=== PATIENT | female | born 1960 | race Caucasian/White ===

== ENCOUNTER 2016-10-14 20:19 | Emergency (ER) | payer OTHER ==
[~2016-10-14] VITALS: Ht 172.7 cm; Wt 84.5 kg
[~2016-10-14 20:19] MED LIST: ACET500C5 PO; CIPR500T4 PO; DOCU-144 PO; LORA1TAB PO; UDROBDM PO
[2016-10-14 20:22] VITALS: Ht 172.7 cm; Wt 84.5 kg
[2016-10-14] MEDS ORDERED: ALBUTEROL 0.083% (NEB) 2.5 MG/3 ML AMP NEB STA (20:31)
[2016-10-14] MEDS ORDERED: DEXAMETHASONE 10 MG/ML 1 ML INJ IM STA (20:31)
[2016-10-14] MEDS ORDERED: AZITHROMYCIN 250 MG TAB PO STA (20:32)
--- NOTE | 2016-10-14 20:41 | ERD ---
ER Documentation Chief Complaint Date/Time DATE: 10/14/16 TIME: 20:38 Chief Complaint cough, sore throat, chest congestion HPI This is a 56-year-old female presenting to the emergency room complaining of cough, sore throat, congestion for the past couple days. Patient states that she feels like she has fevers, she took Tylenol 2 hours prior to being seen. Patient denies any shortness of breath. She does admit to having chest pain with deep inspiration. Patient denies any nausea, vomiting, diarrhea. She denies any medical problems ROS All systems reviewed and are negative except as per history of present illness. Medications Home Meds Active Scripts Promethazine HCl/Codeine (Prometh-Codein 6.25-10 mg/5 ml) 5 Ml Syrup, 5 ML PO Q6 Y for COUGH, #60 Prov:CHRISTAL RAY PA-C 10/14/16 Azithromycin* (Azithromycin*) 250 Mg Tablet, 250 MG PO DAILY, #4 TAB Prov:CHRISTAL RAY PA-C 10/14/16 Albuterol Sulfate* (Proair HFA*) 8.5 Gm Hfa.aer.ad, 2 PUFF INH Q4H Y for WHEEZING AND SOB, #1 INHALER Prov:CHRISTAL RAY PA-C 10/14/16 Lorazepam* (Lorazepam*) 1 Mg Tablet, 1 MG PO Q8H Y for ANXIETY, #10 TAB Prov:PADMINI ROBLES PA-C 10/21/15 Docusate Sodium* (Colace*) 100 Mg Capsule, 100 MG PO TID, #30 CAP 0 Refills Prov:SOO MARTINEZ PA-C 10/17/15 Guaifenesin-Dextromethorphan* (Robitussin* DM) 100MG/10MG/5ML Syrup, 5 ML PO Q6H Y for COUGH, #120 ML 0 Refills Prov:SOO MARTINEZ PA-C 10/17/15 Acetaminophen* (Tylophen*) 500 Mg Capsule, 1 CAP PO Q6H Y for PAIN AND OR ELEVATED TEMP, #30 CAP 0 Refills Prov:SOO MARTINEZ PA-C 10/17/15 Ciprofloxacin Hcl* (Ciprofloxacin Hcl*) 500 Mg Tablet, 500 MG PO BID for 7 Days , TAB 0 Refills Prov:SOO MARTINEZ PA-C 10/17/15 Allergies Allergies: Coded Allergies: aspirin (Verified Allergy, Unknown, 10/17/15) PMhx/Soc History of Surgery: No Anesthesia Reaction: No Hx Neurological Disorder: No Hx Respiratory Disorders: No Hx Cardiac Disorders: No Hx Psychiatric Problems: No (Anxiety) Hx Miscellaneous Medical Probl: Yes (Gastritits, Hemrrhoids) Hx Alcohol Use: No Hx Substance Use: No Hx Tobacco Use: No Physical Exam Vitals Vital Signs Date Time Temp Pulse Resp B/P Pulse Ox O2 Delivery O2 Flow Rate FiO2 10/14/16 20:49 89 22 98 21 10/14/16 20:22 97.7 81 20 133/80 99 Physical Exam GENERAL: well-developed/well-nourished, in no apparent distress, non-toxic appearing HEAD: NC/AT, no swelling noted in frontal or maxillary areas EARS: bilateral tympanic membrane is intact without erythema or effusion NARES: congested THROAT: oropharynx non-erythematous without exudates, no tonsil enlargement EYES: Conjunctiva normal NECK: Supple, no lymphadenopathy PULM: Coarse breath sounds heard bilaterally CV: Normal S1S2, RRR, good capillary refill GI: Soft, non-distended, normal bowel sounds, non-tender BACK: No midline tenderness, no masses EXT No clubbing, cyanosis, or edema NEURO: Alert and Orientated SKIN: Intact, normal turgor PSYCH: Normal mood and mentation Results 24 hrs Current Medications Medications (Trade) Dose Ordered Sig/Bridgette Route PRN Reason Start Time Stop Time Status Last Admin Dose Admin Albuterol (Proventil 0.083% (Neb)) 5 mg ONCE STAT NEB 10/14/16 20:31 10/14/16 20:33 DC 10/14/16 20:49 Dexamethasone (Decadron) 10 mg ONCE STAT IM 10/14/16 20:31 10/14/16 20:33 DC 10/14/16 20:43 Azithromycin (Zithromax) 500 mg ONCE STAT PO 10/14/16 20:32 10/14/16 20:33 DC 10/14/16 20:42 Procedures/MDM This is a 56-year-old female presenting to the emergency department complaining of cough, sore throat, congestion for the past couple days. This is likely bronchitis due to physical examination. RT was consulted and patient was given a breathing treatment 5mg albuterol, 10 mg of Decadron and I have reassessed her and she is doing a lot better. I have a low suspicion for pneumonia, respiratory distress, ACS. Patient is suitable for outpatient medications, pro- air, Z-Ugo and promethazine-DM. Patient's first dose of Z-Ugo was given in the ED. strict precautions were given to return to the ER for any worsening signs or symptoms. She understands and agrees with this plan Chest x-ray showed no evidence of infiltrates, pneumothorax or pleural effusion Stable for discharge for home Departure Diagnosis: Primary Impression: Bronchitis Condition: Stable CHRISTAL RAY PA-C October 14, 2016 20:41
[2016-10-14] MEDS ORDERED: AZIT250T6 PO (22:15)
[2016-10-14] MEDS ORDERED: ALBU8.5H3 INH (22:15)
[2016-10-14] MEDS ORDERED: PROM5SYR2 PO (22:15)
--- NOTE | 2016-10-14 23:02 | RADRPT ---
PROCEDURE: XR Chest. CLINICAL INDICATION: Cough TECHNIQUE: AP Portable chest. COMPARISON: None available FINDINGS: The soft tissues and bones are normal. No focal infiltrates, masses, or effusions are noted. The m ediastinum and heart are normal. No pneumothorax is present. IMPRESSION: 1. No radiographic evidence for acute cardiopulmonary disease RPTAT: [facility] .Izabella Rich MD, MD Date Time Electronically viewed and signed by .Izabella Rich MD, on 10/14/2016 23:02 .C/
[2016-10-14 23:41] VITALS: BP 128/77; PULSE 82; RESP 20; TEMP 98.3
== END 2016-10-14 23:42 | disposition home or self-care (01) ==
LOC: FTE 20:19
DX: J20.9 Acute bronchitis, unspecified (principal)
CPT/HCPCS: 71010; 94664; 96372; J1100; Z7502; Z7610

== ENCOUNTER 2016-11-13 22:04 | Emergency (ER) | payer OTHER ==
[~2016-11-13] VITALS: Ht 167.6 cm; Wt 84.0 kg
[~2016-11-13 22:04] MED LIST changes: +ALBU8.5H3 INH; +AZIT250T6 PO; +PROM5SYR2 PO
[2016-11-13 22:09] VITALS: Ht 167.6 cm; Wt 84.0 kg
[2016-11-13] MEDS ORDERED: HYDROCODONE/APAP (5/325) TAB PO ONE (23:00)
[2016-11-13 23:05] LABS: ADD SCAN DIFF NO
[2016-11-13 23:09] LABS: BASOPHIL # 0.1 10^3/ul (0.0-0.1); BASOPHILS % 0.7 % (0.0-2.0); EOSINOPHILS # 0.2 10^3/ul (0.0-0.5); EOSINOPHILS % 2.5 % (0.0-7.0); HEMOGLOBIN 14.7 g/dl (12.0-16.0); LYMPHOCYTES # 1.9 10^3/ul (0.8-2.9); LYMPHOCYTES % 27.8 % (15.0-51.0); MEAN CORPUSCULAR HEMOGLOBIN 29.3 pg (29.0-33.0); MEAN CORPUSCULAR VOLUME 91.8 fl (82.0-101.0); MEAN PLATELET VOLUME 10.7 fl (7.4-10.4); MONOCYTE # 0.5 10^3/ul (0.3-0.9); MONOCYTES % 7.2 % (0.0-11.0); NEUTROPHIL # 4.1 10^3/ul (1.6-7.5); NEUTROPHILS % 61.5 % (39.0-77.0); PLATELET COUNT 285 10^3/UL (140-415); RED BLOOD COUNT 5.01 10^6/ul (4.20-5.40); RED CELL DISTRIBUTION WIDTH 13.5 % (11.5-14.5); WHITE BLOOD COUNT 6.7 10^3/ul (4.8-10.8)
[2016-11-13 23:28] LABS: ANION GAP 13 (8-16); BLOOD UREA NITROGEN 15 mg/dl (7-20); CALCIUM 9.8 mg/dl (8.4-10.2); CARBON DIOXIDE 28 mmol/L (21-31); CHLORIDE 104 mmol/L (97-110); CREATININE 0.88 mg/dl (0.44-1.00); GLUCOSE 103 mg/dl (70-220); POTASSIUM 4.5 mmol/L (3.5-5.1); SODIUM 140 mmol/L (135-144)
[2016-11-13 23:44] LABS: TROPONIN-I < 0.012 ng/ml (0.00-0.12)
--- NOTE | 2016-11-13 23:58 | RADRPT ---
PROCEDURE: CHEST - 1 VIEW CLINICAL INDICATION: 56-year-old female with chest pain. TECHNIQUE: A single frontal AP upright portable view of the chest was performed. The images were reviewed on a PACS workstation. COMPARISON: Chest x-ray October 14, 2016. FINDINGS: The cardiomediastinal silhouette has a normal appearance. There is a small nodular density within t he left lower lung zone measuring 3 mm most likely representing a granuloma and without significant interval change. There is no evidence for an infiltrate. There is no evidence for congestive heart failure. There is no evidence for pneumothorax. The osseous structures are intact. IMPRESSION: 1. No evidence for active cardiopulmonary disease. 2. Probable left lower lung zone 3 mm granuloma. .Abdiel Swanson MD, MD Date Time Electronically viewed and signed by .Abdiel Swanson MD, on 11/13/2016 23:57 .M/
[2016-11-14] MEDS ORDERED: PRED20TA PO (00:34)
[2016-11-14] MEDS ORDERED: TYL500 PO (00:35)
[2016-11-14 00:48] VITALS: BP 125/80; PULSE 72; RESP 20; TEMP 98
--- NOTE | 2016-11-14 01:16 | ERD ---
ER Documentation Chief Complaint Date/Time DATE: 11/14/16 TIME: 01:14 Chief Complaint states "on and off cough/upper back pain for a while now" HPI This is a 56-year-old female that presents to the ER with a cough that has been intermittent over the last month. Patient states that she developed back pain and chest pain secondary to cough. She admits to shortness of breath. She also complains of sore throat. Patient states that she has had intermittent fevers. She came to the ER a month ago and was given antibiotics for bronchitis , this however did not help her. Patient states that chest pain is only when she coughs it is nonexertional. She denies any fevers or chills. Patient denies any leg pain, redness, or leg swelling. Patient has not traveled anywhere recently. She has not had any recent surgeries. ROS 12 point review of systems was done, all negative except per HPI. Medications Home Meds Active Scripts Acetaminophen* (Tylenol*) 500 Mg Tab, 1000 MG PO Q8 Y for PAIN AND OR ELEVATED TEMP for 3 Days, TAB Prov:LC FONTANA 11/14/16 Prednisone* (Prednisone*) 20 Mg Tab, 40 MG PO DAILY for 5 Days, TAB Prov:LC FONTANA 11/14/16 Promethazine HCl/Codeine (Prometh-Codein 6.25-10 mg/5 ml) 5 Ml Syrup, 5 ML PO Q6 Y for COUGH, #60 Prov:CHRISTAL RAY PA-C 10/14/16 Azithromycin* (Azithromycin*) 250 Mg Tablet, 250 MG PO DAILY, #4 TAB Prov:CHRISTAL RAY PA-C 10/14/16 Albuterol Sulfate* (Proair HFA*) 8.5 Gm Hfa.aer.ad, 2 PUFF INH Q4H Y for WHEEZING AND SOB, #1 INHALER Prov:CHRISTAL RAY PA-C 10/14/16 Lorazepam* (Lorazepam*) 1 Mg Tablet, 1 MG PO Q8H Y for ANXIETY, #10 TAB Prov:PADMINI ROBLES PA-C 10/21/15 Docusate Sodium* (Colace*) 100 Mg Capsule, 100 MG PO TID, #30 CAP 0 Refills Prov:SOO MARTINEZ PA-C 10/17/15 Guaifenesin-Dextromethorphan* (Robitussin* DM) 100MG/10MG/5ML Syrup, 5 ML PO Q6H Y for COUGH, #120 ML 0 Refills Prov:SOO MARTINEZ PA-C 10/17/15 Acetaminophen* (Tylophen*) 500 Mg Capsule, 1 CAP PO Q6H Y for PAIN AND OR ELEVATED TEMP, #30 CAP 0 Refills Prov:SOO MARTINEZ PA-C 10/17/15 Ciprofloxacin Hcl* (Ciprofloxacin Hcl*) 500 Mg Tablet, 500 MG PO BID for 7 Days , TAB 0 Refills Prov:SOO MARTINEZ PA-C 10/17/15 Allergies Allergies: Coded Allergies: aspirin (Verified Allergy, Unknown, 10/17/15) PMhx/Soc History of Surgery: No Anesthesia Reaction: No Hx Neurological Disorder: No Hx Respiratory Disorders: No Hx Cardiac Disorders: No Hx Psychiatric Problems: No (Anxiety) Hx Miscellaneous Medical Probl: Yes (Gastritits, Hemrrhoids) Hx Alcohol Use: No Hx Substance Use: No Hx Tobacco Use: No Physical Exam Vitals Vital Signs Date Time Temp Pulse Resp B/P Pulse Ox O2 Delivery O2 Flow Rate FiO2 11/14/16 00:48 98.0 72 20 125/80 99 Room Air 11/13/16 22:09 98.0 90 20 124/78 98 Physical Exam GENERAL: The patient is well-developed, well-nourished, in no acute distress. NECK: Cervical spine is non tender with no step off. Supple, no nuchal rigidity HEENT: Atraumatic. Pupils equal, round and reactive to light. Extraocular muscles are grossly intact. Conjunctivae pink, no discharge. Bilateral tympanic membranes are clear with no evidence of erythema, effusion or dulling of the light reflex. Tonsilar erythema with no exudates or uvular deviation. Clear rhinorrhea. RESPIRATORY: Clear to auscultation bilaterally. There are no rales, wheezes or rhonchi. HEART: Regular rate and rhythm. No murmurs, clicks, rubs or gallops. EXTREMITIES: No clubbing or cyanosis. Full range of motion. Grossly neurovascularly intact. NEUROLOGIC: Alert and oriented. Cranial nerves II through XII are intact. SKIN: There is no rash. The skin is warm and dry. Result Diagram: 11/13/16 2300 11/13/16 2300 Results 24 hrs Laboratory Tests Test 11/13/16 23:00 White Blood Count 6.710^3/ul Red Blood Count 5.0110^6/ul Hemoglobin 14.7g/dl Hematocrit 46.0% Mean Corpuscular Volume 91.8fl Mean Corpuscular Hemoglobin 29.3pg Mean Corpuscular Hemoglobin Concent 32.0g/dl Red Cell Distribution Width 13.5% Platelet Count 09343^3/UL Mean Platelet Volume 10.7fl Neutrophils % 61.5% Lymphocytes % 27.8% Monocytes % 7.2% Eosinophils % 2.5% Basophils % 0.7% Nucleated Red Blood Cells % 0.0/100WBC Neutrophils # 4.110^3/ul Lymphocytes # 1.910^3/ul Monocytes # 0.510^3/ul Eosinophils # 0.210^3/ul Basophils # 0.110^3/ul Nucleated Red Blood Cells # 0.010^3/ul Sodium Level 140mmol/L Potassium Level 4.5mmol/L Chloride Level 104mmol/L Carbon Dioxide Level 28mmol/L Anion Gap 13 Blood Urea Nitrogen 15mg/dl Creatinine 0.88mg/dl Glucose Level 103mg/dl Calcium Level 9.8mg/dl Troponin I < 0.012ng/ml Current Medications Medications (Trade) Dose Ordered Sig/Bridgette Route PRN Reason Start Time Stop Time Status Last Admin Dose Admin Acetaminophen/ Hydrocodone Bitart ([place] (5/325)) 1 tab ONCE ONCE PO 11/13/16 23:00 11/13/16 23:01 DC 11/13/16 22:58 Procedures/MDM EKG was taken and read by Dr. Miller 75bpm no ST elevation or t wave inversion Differential diagnosis includes but is not limited to; Viral URI, allergic rhinitis, bronchitis, pertussis,pneumonia. This is likely viral in etiology. Clinical suspicion for pneumonia is low as patient appears well, is not hypoxic or in any respiratory distress. Additionally, patients physical examination is benign. Plan was discussed with patient they understand and agree. Patient needs to follow up with PCP in 1-2 days or return to ER sooner if symptoms worsen. Departure Diagnosis: Primary Impression: Cough Condition: Stable Patient Instructions: Cough, Chronic, Uncertain Cause, (Adult) Additional Instructions: Call your primary care doctor TOMORROW for an appointment during the next 1-2 days.See the doctor sooner or return here if your condition worsens before your appointment time. LC FONTANA Nov 14, 2016 01:16
== END 2016-11-14 00:36 | disposition home or self-care (01) ==
LOC: FTE 22:04
DX: R05 Cough (principal); R07.9 Chest pain, unspecified
CPT/HCPCS: 36415; 71010; 80048; 84484; 85025; 93005; Z7502; Z7610